=== PATIENT | male | born 1990 | race Two or more races ===

== ENCOUNTER 2024-09-19 19:56 | Emergency (ER) | payer OTHER ==
[~2024-09-19] VITALS: Ht 175.3 cm; Wt 130.6 kg
[2024-09-19] MEDS ORDERED: MORPHINE SULFATE 2 MG/ML SYRINGE IV ONE (21:00)
[2024-09-19] MEDS ORDERED: ASPIRIN 81 MG TABLET.EC PO ONE (21:00)
[2024-09-19] MEDS ORDERED: 0.9 % SODIUM CHLORIDE 1,000 ML IV ONE (21:00)
[2024-09-19 22:09] LABS: ABG PO2 84.7 mmHg (80-100); ABG pCO2 48.9 mmHg (35-45); BASE EXCESS 2.3 mmol/l; BICARBONATE 28.3 mmol/l (23-25); SaO2 96.2 %; Tco2 29.8 mmol/l
[2024-09-19 22:16] LABS: HEMATOCRIT 40.5 % (39.0-48.0); HEMOGLOBIN 13.7 g/dL (13-16.00); MEAN CORPUSCULAR HEMOGLOBIN 27.4 pg (27.00-32.0); MEAN CORPUSCULAR HGB CONC 33.8 g/dl (32.0-36.0); PLATELET COUNT 303 K/uL (150-450)
[2024-09-19 22:38] LABS: ALBUMIN 3.5 gm/dL (3.4-5.0); BILIRUBIN TOTAL 0.23 mg/dL (0.3-1.2); CALCIUM 8.8 mg/dL (8.5-10.1); CREATININE SERUM 0.86 mg/dL (0.70-1.30); GFR 103.05; GLOBULINA 4.3 G/DL (2.4-3.5); POTASSIUM 4.11 mEq/L (3.5-5.1); TOTAL PROTEIN 7.8 gm/dL (6.4-8.2)
[2024-09-19 22:41] LABS: allen test SATISFACTORY; o2 21 %; puncture site RADIAL LEFT
[2024-09-19 22:46] LABS: INR 1.01; PARTIAL THROMBOPLASTIN TIME 29.1 SECONDS (22.0-34.0)
[2024-09-19 23:33] LABS: PH,URINE 6.5 (5.0-8.0); URINE APPEARANCE Clear; URINE BILIRRUBIN Negative (NEGATIVE); URINE BLOOD NHT; URINE COLOR Yellow; URINE GLUCOSE Negative (NEGATIVE); URINE KETONE Negative (NEGATIVE); URINE LEUKOCYTE Negative; URINE NITRATE Negative; URINE PROTEIN Negative (NEGATIVE)
[2024-09-19 23:34] LABS: URINE BACTERIA 8.8 uL (0.0-1933); URINE EPITHELIAL CELLS 4.1 uL (0.0-38.8); URINE RBC 22.9 uL (0.0-20.8); URINE WBC 5.3 uL (0.0-23.2)
[2024-09-19 23:43] LABS: COCAINE NEGATIVE (NEGATIVE); METHADONE NEGATIVE (NEGATIVE); OPIATES NEGATIVE (NEGATIVE); THC ( Cannabinoids) NEGATIVE (NEGATIVE)
== END 2024-09-20 04:33 | disposition home or self-care (01) ==
LOC: ER 19:58
PROVIDERS: General Practice
DX: K21.9 Gastro-esophageal reflux disease without esophagitis (principal); R07.89 Other chest pain